=== PATIENT | female | born 1995 | race Caucasian/White ===

== ENCOUNTER 2017-09-17 22:07 | Emergency (ER) | payer BC ==
[2017-09-17 22:17] VITALS: BP 127/82
[2017-09-17] MEDS ORDERED: BUFFERED LIDOCAINE 10 ML SYRINGE ONE (22:21)
--- NOTE | 2017-09-17 22:34 | ED Physician Documentation ---
PD HPI UPPER EXT INJURY - Stated complaint Stated Complaint: HAND LAC - History obtained from History obtained from: Patient - History of Present Illness Location: Left (She is right-handed, she was having something with a knife and stabbed her left hand just prior to arrival, tetanus is unknown.) Review of Systems Constitutional: denies: Fever, Chills Ears: reports: Reviewed and negative Nose: reports: Reviewed and negative PD PAST MEDICAL HISTORY - Allergies Allergies/Adverse Reactions: Allergies Allergy/AdvReac Type Severity Reaction Status Date / Time No Known Drug Allergies Allergy Verified 09/17/17 22:17 PD ED PE NORMAL - Vitals Vital signs reviewed: Yes - General General: Alert and oriented X 3, No acute distress - Extremities Extremities: Other (The left hand there is a 2 cm laceration just on the palmar side of the webspace between the first and second fingers with normal flexion strength of the second finger and normal neurovascular status of all the fingers.) - Neuro Neuro: Alert and oriented X 3, Normal speech - Psych Psych: Normal mood Results - Vitals Vitals: Vital Signs - 24 hr 09/17/17 22:13 Temperature 36.3 C L Heart Rate 101 H Respiratory 17 Rate Blood Pressure 127/82 H O2 Saturation 99 Oxygen O2 Source Room air Procedures - Laceration (location) Left hand Length in cm: 2 Wound type: Linear Neurovascular status: Sensory intact, Motor intact, Vascular intact Tendon involvement: Tendon intact Anesthesia: Lidocaine 1%, With bicarb Wound Preparation: Irrigated copiously NS Skin layer closure: Nylon, Interrupted, Size #-0 - enter number (4-0), Sutures - enter # (5) Other: Tetanus booster given Complexity: Simple Departure - Departure Disposition: 01 Home, Self Care Clinical Impression: Laceration of left hand Qualifiers: Encounter type: initial encounter Foreign body presence: without foreign body Qualified Code(s): S61.412A - Laceration without foreign body of left hand, initial encounter Condition: Good Record reviewed to determine appropriate education?: Yes Instructions: ED Laceration Hand Comments: Come back for any signs of infection which would include: Redness, swelling, drainage, increased pain, or fevers. Follow-up with your physician in 10-14 days for suture removal. Your blood pressure was elevated today on check into the emergency department. This does not mean that you have hypertension, it is a common phenomenon to come to the emergency department and have elevated blood pressure. I recommend that you see your primary care physician within the week to have it rechecked when you are feeling better. Forms: Activity restrictions
[2017-09-17] MEDS ORDERED: BUFFERED LIDOCAINE 10 ML SYRINGE SUBQ STA (22:43)
== END 2017-09-17 22:58 | disposition home or self-care (01) ==
LOC: ED 22:07
DX: S61.412A Laceration without foreign body of left hand, initial encounter (principal); W26.0XXA Contact with knife, initial encounter; Y93.89 Activity, other specified; R03.0 Elevated blood-pressure reading, without diagnosis of hypertension
CPT/HCPCS: 12001; 99283

== ENCOUNTER 2017-09-18 21:00 | Emergency (ER) | payer BC ==
[2017-09-18] MEDS ORDERED: oxyCODONE 5 MG TABLET PO STA (21:06)
[2017-09-18] MEDS ORDERED: HYDROcod/ACET 5/325 Prepack 6 PO STA (21:06)
--- NOTE | 2017-09-18 21:09 | ED Physician Documentation ---
PD HPI UPPER EXT INJURY - Stated complaint Stated Complaint: LT HAND PAIN - History obtained from History obtained from: Patient - History of Present Illness Location: Other (Seen here last night for left hand laceration, she is having a lot of pain last night and today despite taking oral acetaminophen. No fevers or chills.) Review of Systems Constitutional: reports: Reviewed and negative Cardiac: reports: Reviewed and negative Respiratory: reports: Reviewed and negative PD PAST MEDICAL HISTORY - Past Medical History Respiratory: Asthma - Past Surgical History Past Surgical History: No - Present Medications Home Medications: Ambulatory Orders Medication Instructions Recorded Confirmed HYDROcod/ACETAM 5/325 [[place] 5/325] 1 - 2 ea PO Q6H PRN #10 tablet 09/18/17 - Allergies Allergies/Adverse Reactions: Allergies Allergy/AdvReac Type Severity Reaction Status Date / Time No Known Drug Allergies Allergy Verified 09/17/17 22:17 - Social History Does the pt smoke?: No Smoking Status: Never smoker Does the pt drink ETOH?: No Does the pt have substance abuse?: No - Immunizations Immunizations are current?: Yes PD ED PE NORMAL - Vitals Vital signs reviewed: Yes - General General: Alert and oriented X 3, No acute distress - Extremities Extremities: Other (Incision in the left hand clean dry and intact, no infection ) - Neuro Neuro: Alert and oriented X 3, Normal speech Results - Vitals Vitals: Oxygen O2 Source Room air Departure - Departure Disposition: 01 Home, Self Care Clinical Impression: Laceration of left hand Qualifiers: Encounter type: initial encounter Foreign body presence: without foreign body Qualified Code(s): S61.412A - Laceration without foreign body of left hand, initial encounter Condition: Good Record reviewed to determine appropriate education?: Yes Instructions: ED Laceration Hand Prescriptions: HYDROcod/ACETAM 5/325 [[place] 5/325] 1 - 2 ea PO Q6H PRN #10 tablet PRN Reason: Pain Forms: Activity restrictions
[2017-09-18 21:12] VITALS: BP 132/85
[2017-09-18] MEDS ORDERED: oxyCODONE 5 MG TABLET ONE (21:18)
[2017-09-18] MEDS ORDERED: HYDROcod/ACET 5/325 Prepack 6 PO ONE (21:19)
== END 2017-09-18 21:20 | disposition home or self-care (01) ==
LOC: ED 21:00
DX: S61.412A Laceration without foreign body of left hand, initial encounter (principal); X58.XXXA Exposure to other specified factors, initial encounter
CPT/HCPCS: 99283; A9270

== ENCOUNTER 2017-10-01 16:25 | Emergency (ER) | payer BC ==
[2017-10-01 16:49] VITALS: BP 112/72
--- NOTE | 2017-10-01 17:30 | ED Physician Documentation ---
History of Present Illness - Stated complaint Stated Complaint: L HAND STITCH REMOVAL - Chief complaint Chief Complaint: General - History obtained from History obtained from: Patient - History of Present Illness Timing: How many weeks ago (2) Pain level max: 0 Pain level now: 0 - Additonal information Additional information: Patient is a 21-year-old female who is here for suture removal from the left hand after laceration 2 weeks ago. No complaints. No redness, swelling, drainage. No fevers. No pain. Review of Systems Constitutional: denies: Fever PD PAST MEDICAL HISTORY - Past Medical History Respiratory: Asthma - Past Surgical History Past Surgical History: No - Present Medications Home Medications: Ambulatory Orders Medication Instructions Recorded Confirmed HYDROcod/ACETAM 5/325 [[place] 5/325] 1 - 2 ea PO Q6H PRN #10 tablet 09/18/1709/07 - Allergies Allergies/Adverse Reactions: Allergies Allergy/AdvReac Type Severity Reaction Status Date / Time No Known Drug Allergies Allergy Verified 09/18/17 21:12 - Social History Does the pt smoke?: No Smoking Status: Never smoker Does the pt drink ETOH?: No Does the pt have substance abuse?: No - Immunizations Immunizations are current?: Yes - POLST Patient has POLST: No PD ED PE NORMAL - Vitals Vital signs reviewed: Yes - General General: Alert and oriented X 3 - Extremities Extremities: Other (L hand - sutures in place. Well healed. no drainage. no signs of infection.) - Neuro Neuro: Alert and oriented X 3 Results - Vitals Vitals: Vital Signs - 24 hr 10/01/17 16:47 Temperature 36.3 C L Heart Rate 77 Respiratory 14 Rate Blood Pressure 112/72 O2 Saturation 100 Oxygen O2 Source Room air PD MEDICAL DECISION MAKING - ED course Complexity details: considered differential, d/w patient ED course: Sutures removed. Tolerated well. Dressing applied. Warnings of infection and instructions on wound care given at bedside. Also counseled on how to minimize scarring. Patient counseled regarding signs and symptoms for which I believe and urgent re-evaluation would be necessary. Patient with good understanding of and agreement to plan and is comfortable going home at this time This document was made in part using voice recognition software. While efforts are made to proofread this document, sound alike and grammatical errors may occur. Departure - Departure Disposition: 01 Home, Self Care Clinical Impression: Visit for suture removal Condition: Good Instructions: ED Wound Check Sutr Remove No Infec Follow-Up: your,doctor as needed [Other] Comments: Return if you worsen including redness, swelling or drainage from the wound. Discharge Date/Time: 10/01/17 17:37
[2017-10-01] MEDS ORDERED: BACITRACIN OINT TOP ONE (17:39)
== END 2017-10-01 17:37 | disposition home or self-care (01) ==
LOC: ED 16:25
DX: S61.412D Laceration without foreign body of left hand, subsequent encounter (principal); W45.8XXD Other foreign body or object entering through skin, subsequent encounter; Z48.02 Encounter for removal of sutures
CPT/HCPCS: 99281; 99282; A9270

== ENCOUNTER 2017-11-20 19:40 | Outpatient (CLI) | payer BC ==
--- NOTE | 2017-11-20 21:47 | Ultrasound Report ---
EXAM: PELVIC ULTRASOUND EXAM DATE: 11/20/2017 09:01 PM. CLINICAL HISTORY: Abdominal PAIN AND CRAMPING. COMPARISON: None. TECHNIQUE: Realtime transabdominal pelvic scan performed with static image documentation. FINDINGS: Uterus: 6.9 x 2.7 x 4.9 cm, volume 46.7 cc. Anteverted position. Normal overall size and echotexture. Masses: None. Endometrium: 2.4 mm. Normal. Intrauterine device appears in a satisfactory position. Cervix: Unremarkable. Right Ovary: 3.7 x 1.1 x 2.3 cm, volume 4.8 cc. Normal echotexture and blood flow. Left Ovary: 3.4 x 1.2 x 2.6 cm, volume 5.5 cc. Normal echotexture and blood flow. Free Fluid: None. IMPRESSION: Normal pelvic ultrasound. [facility] The call report notification system was initiated by Dr. Santa Byrd at 21:35 hrs on 11/20/17. The above findings were discussed with Dr. Cavazos by Dr. Santa Byrd at 21:44 hrs on 11/20/17. Referring Provider Line: [phone] SITE ID: [id number]
--- NOTE | 2017-11-20 21:47 | Ultrasound Preliminary Report ---
Exam: US PELVIC COMPLETE - NON OB IMPRESSION: Normal pelvic ultrasound. [facility] The call report notification system was initiated by Dr. Santa Byrd at 21:35 hrs on 11/20/17. The above findings were discussed with Dr. Cavazos by Dr. Santa Byrd at 21:44 hrs on 11/20/17. SITE ID: [id number]
--- NOTE | 2017-11-20 21:47 | Ultrasound Report ---
EXAM: ABDOMEN ULTRASOUND EXAM DATE: 11/20/2017 09:01 PM. CLINICAL HISTORY: Abdominal PAIN AND CRAMPING. COMPARISON: None. TECHNIQUE: Real-time scanning was performed with static images obtained. FINDINGS: Liver: Mild fatty liver. 17.7 cm. Main portal vein flow: Hepatopetal. Gallbladder: Normal. No stones, wall thickening, or sonographic Aquino's sign. Wall thickness measure s 2 mm. Biliary System: Common bile duct measures 4 mm. No intrahepatic or extrahepatic ductal dilatation. Pancreas: Visualized portion is unremarkable. Kidneys: Right: 10.6 cm longitudinally. Normal. No contour-deforming mass, stones, or hydronephrosis. Left: 11.3 cm longitudinally. Normal. No contour-deforming mass, stones, or hydronephrosis. Spleen: 11.5 cm. Normal in size and echotexture. Aorta and Inferior Vena Cava: Unremarkable. IMPRESSION: 1. Mild fatty liver. 2. Normal gallbladder. 3. No acute findings. [facility] The call report notification system was initiated by Dr. Santa Byrd at 21:35 hrs on 11/20/17. The above findings were discussed with Dr. Cavazos by Dr. Santa Byrd at 21:44 hrs on 11/20/17. Referring Provider Line: [phone] SITE ID: [id number]
== END 2017-11-20 19:41 | disposition home or self-care (01) ==
LOC: DI 19:40
PROVIDERS: ATTEND Specialist
DX: K76.0 Fatty (change of) liver, not elsewhere classified (principal)
CPT/HCPCS: 76700; 76856

== ENCOUNTER 2019-06-17 11:08 | Emergency (ER) | payer BC, OTHER ==
--- NOTE | 2019-06-17 13:15 | ED Physician Documentation ---
PD HPI SKIN - Stated complaint Stated Complaint: CYST ON TAILBONE - Chief complaint Chief Complaint: General - History obtained from History obtained from: Patient - History of Present Illness Timing - onset: How many days ago (5) Timing - duration: Days (5) Timing - details: Gradual onset, Still present (steadily worsening) Location: Other (coccygeal area) Quality / character: Painful, Discolored (red), Raised, Swelling. No: Draining Associated symptoms: No: Fever, Myalgias, N/V/D Similar symptoms before: Has not had sx before Recently seen: Not recently seen Review of Systems Constitutional: denies: Fever, Chills, Myalgias GI: denies: Abdominal Pain, Nausea, Vomiting, Constipation, Diarrhea Skin: denies: Laceration (s) PD PAST MEDICAL HISTORY - Past Medical History Respiratory: Asthma - Past Surgical History Past Surgical History: No - Present Medications Home Medications: Ambulatory Orders Medication Instructions Recorded Confirmed HYDROcod/ACETAM 5/325 [[place] 5/325] 1 - 2 ea PO Q6H PRN #10 tablet 09/18/17 10/01/17 Hydrocodone/Acetaminophen [[place] 1 each PO Q6H PRN #15 tablet 06/17/19 5-325 Tablet] Nystatin Cream [Mycostatin Cream] 1 applic TOP BID #15 g 06/17/19 Sulfamethox/Trimeth 800/160 1 each PO BID #14 tablet 06/17/19 [Bactrim Ds 800/160] - Allergies Allergies/Adverse Reactions: Allergies Allergy/AdvReac Type Severity Reaction Status Date / Time No Known Drug Allergies Allergy Verified 06/17/19 11:18 - Social History Does the pt smoke?: No Smoking Status: Never smoker Does the pt drink ETOH?: No Does the pt have substance abuse?: No - Immunizations Immunizations are current?: Yes - POLST Patient has POLST: No PD ED PE NORMAL - Vitals Vital signs reviewed: Yes - General General: Alert and oriented X 3, Well developed/nourished - Rectal Rectal: Other (coccygeal area with focal area of tenderness, swelling and redness. No perirectal lesions. ) - Derm Derm: Normal color, Warm and dry Results - Vitals Vitals: Vital Signs - 24 hr 06/17/19 06/17/19 11:16 14:59 Temperature 36.5 C 36.5 C Heart Rate 100 72 Respiratory 19 18 Rate Blood Pressure 133/79 H 110/72 O2 Saturation 98 97 Oxygen O2 Source Room air Procedures - Abscess I&D (location) pilonidal Preparation: Lidocaine 1%, With epi Incision: Incised with scalpel, Purulent drainage, Irrigated. No: Packed, Culture obtained Other: Pt tolerated well, Dressing applied, Antibiotic prescribed PD MEDICAL DECISION MAKING - ED course Complexity details: considered differential, d/w patient Departure - Departure Disposition: Home, Self Care Clinical Impression: Pilonidal cyst with abscess Condition: Stable Record reviewed to determine appropriate education?: Yes Instructions: ED Cyst Pilonidal Infected IandD Follow-Up: CHANO MORALES MD [Primary Care Provider] - Prescriptions: Hydrocodone/Acetaminophen [[place] 5-325 Tablet] 1 each PO Q6H PRN #15 tablet PRN Reason: Pain Nystatin Cream [Mycostatin Cream] 1 applic TOP BID #15 g Sulfamethox/Trimeth 800/160 [Bactrim Ds 800/160] 1 each PO BID #14 tablet Comments: Warm soaks for the area to promote drainage. Use Bactrim antibiotic twice daily for a week. Ibuprofen or naproxen twice daily. Add Tylenol or hydrocodone as needed for pain. Use the nystatin cream to the buttock fold area where there is a separate red rash. Use that twice a day until that is cleared. That looks more like a small skin yeast infection separate from the abscess. Discharge Date/Time: 06/17/19 15:01
[2019-06-17] MEDS ORDERED: HYDROmorphone 1 MG/ML CARPUJECT IM STA (13:40)
[2019-06-17] MEDS ORDERED: SULFAMETH/TRIMETH DS 800/160 MG TABLET PO STA (13:40)
[2019-06-17] MEDS ORDERED: KETOROLAC 30 MG/ML VIAL IM STA (13:40)
[2019-06-17 15:00] VITALS: BP 110/72
== END 2019-06-17 15:01 | disposition home or self-care (01) ==
LOC: ED 11:08
DX: L05.01 Pilonidal cyst with abscess (principal)
CPT/HCPCS: 10080; 96372; 99283; A9270; J1170